=== PATIENT | female | born 1945 | race Caucasian/White ===

== ENCOUNTER 2016-06-01 05:25 | Inpatient (IN) | payer MEDICARE, BC ==
[2016-05-27 15:10] VITALS: BP 180/97
[~2016-06-01] VITALS: Ht 152.4 cm; Wt 81.1 kg
[~2016-06-01 05:25] MED LIST: ALBU8.5H3 INH; CYCL5TAB PO; DEXA4TAB PO; DOCU100C8 PO; DOXA4TAB3 PO; ERGO500017 PO; HYDR-3144 PO; LOSA1TAB18 PO; LOVA20TA2 PO; MUPI22OI2 NAS; OXYC-223 PO; PARO40TA3 PO; POTA10TA5 PO
[2016-06-01] MEDS ORDERED: LACTATED RINGERS 1,000 ML IV SCH (06:19)
[2016-06-01] MEDS ORDERED: HYDR-879 PO (06:22)
[2016-06-01] MEDS ORDERED: LIDOCAINE 0.5%-EPI 1:200K, 50ML ONE (07:01)
[2016-06-01] MEDS ORDERED: VANCOMYCIN 1,000 MG ONE (07:02)
[2016-06-01] MEDS ORDERED: BUPIVACAINE/PF-EPI 0.25% 1:200K ONE (07:02)
[2016-06-01] MEDS ORDERED: THROMBIN 5,000 UNIT VIAL TP ONE (07:02)
[2016-06-01] MEDS ORDERED: PROPOFOL 10 MG/ML, 20ML ONE (07:49)
[2016-06-01] MEDS ORDERED: DEXAMETHASONE 4 MG/ML, 5ML ONE (07:49)
[2016-06-01] MEDS ORDERED: PROPOFOL 10 MG/ML, 50ML ONE (07:49)
[2016-06-01] MEDS ORDERED: METOPROLOL 1 MG/ML, 5ML ONE (07:49)
[2016-06-01] MEDS ORDERED: CEFAZOLIN 1,000 MG ONE (07:49)
[2016-06-01] MEDS ORDERED: SUCCINYLCHOLINE 20 MG/ML, 10ML ONE (07:49)
[2016-06-01] MEDS ORDERED: ONDANSETRON 2MG/ML, 2ML ONE (07:49)
[2016-06-01] MEDS ORDERED: ROCURONIUM 10 MG/ML ONE (07:49)
[2016-06-01] MEDS ORDERED: ALBUTEROL SULFATE 200 PUFFS/8.5 GR INH ONE (07:49)
[2016-06-01] MEDS ORDERED: HYDROmorphone 2 MG/ML, 1ML ONE ×2 (09:45→11:27)
[2016-06-01] MEDS ORDERED: ALBUTEROL SULFATE 2.5 MG/3 ML NPPB PRN (10:00)
[2016-06-01] MEDS ORDERED: MIDAZOLAM 1 MG/ML, 2ML IV PRN (10:00)
[2016-06-01] MEDS ORDERED: VANCOMYCIN 1,000 MG IVPush ONE (10:00)
[2016-06-01] MEDS ORDERED: OXYcodone 5 MG/5 ML ORAL.SOL UDC PO PRN (10:00)
[2016-06-01] MEDS ORDERED: FENTANYL PF 100 MCG/2ML IV PRN (10:00)
[2016-06-01] MEDS ORDERED: hydrALAzine 20 MG/ML, 1ML IV PRN (10:00)
[2016-06-01] MEDS ORDERED: ONDANSETRON 2MG/ML, 2ML IVPush PRN (10:00)
[2016-06-01] MEDS ORDERED: ACETAMINOPHEN 325 MG TABLET PO PRN (10:00)
[2016-06-01] MEDS ORDERED: MEPERIDINE/PF 25MG/0.5ML IVPush PRN (10:00)
[2016-06-01] MEDS ORDERED: METOPROLOL 1 MG/ML, 5ML IV PRN (10:00)
[2016-06-01] MEDS ORDERED: EPHEDRINE 50 MG/ML, 1ML IVPush PRN (10:00)
[2016-06-01] MEDS ORDERED: PROMETHAZINE 25 MG/ML, 1ML IV PRN (10:00)
[2016-06-01] MEDS ORDERED: LABETALOL 5MG/ML, 20ML IV PRN (10:00)
[2016-06-01] MEDS ORDERED: OXYcodone 5 MG/5 ML ORAL.SOL UDC ONE (11:27)
[2016-06-01] MEDS: HYDROmorphone 1 MG/ML, 1ML IV PRN ×2 (11:30→11:45)
[2016-06-01 12:30] VITALS: BP 137/79
[2016-06-01] MEDS ORDERED: HYDROmorphone 2 MG/ML, 1ML IM PRN (13:30)
[2016-06-01] MEDS ORDERED: DIPHENHYDRAMINE 50 MG/ML, 1ML IM PRN (13:30)
[2016-06-01] MEDS ORDERED: DIPHENHYDRAMINE 50 MG CAPSULE PO PRN (13:30)
[2016-06-01] MEDS ORDERED: PROMETHAZINE 25 MG/ML, 1ML IM PRN (13:30)
[2016-06-01] MEDS ORDERED: ALBUTEROL SULFATE 2.5 MG/3 ML HHN PRN (13:30)
[2016-06-01] MEDS ORDERED: DIPHENHYDRAMINE 50 MG/ML, 1ML IVPush PRN (13:30)
[2016-06-01] MEDS ORDERED: ONDANSETRON 2MG/ML, 2ML IV PRN (13:30)
[2016-06-01] MEDS ORDERED: CYCLOBENZAPRINE 10 MG TABLET PO PRN (13:30)
[2016-06-01] MEDS ORDERED: MAGNESIUM HYDROXIDE 8%, 30ML UDC PO PRN (13:30)
[2016-06-01] MEDS: METHOCARBAMOL 1,000 MG in DEXTROSE 5% 100 ML IV SCH ×2 (15:25→23:23)
[2016-06-01] MEDS: LOSARTAN 50MG TABLET PO SCH (15:31)
[2016-06-01] MEDS: HYDROCHLOROTHIAZIDE 12.5 MG CAPSULE PO SCH (15:33)
[2016-06-01] MEDS: POTASSIUM CHLORIDE 10 MEQ TABLET.ER PO SCH (15:34)
[2016-06-01] MEDS: D5%-0.9% NACL+KCL 20MEQ 1,000 ML IV SCH (15:35)
[2016-06-01] MEDS: CEFAZOLIN PMX 1GM/50ML 50 ML IVPB SCH (15:37)
[2016-06-01 17:15] VITALS: BP 152/78
[2016-06-01] MEDS: OXYcodone/APAP 5/325MG TABLET PO PRN (17:53)
[2016-06-01 20:47] VITALS: BP 163/90
[2016-06-01] MEDS: DOXAZOSIN 2MG TABLET PO SCH (20:57)
[2016-06-01] MEDS: LOVASTATIN 40 MG TABLET PO SCH (20:57)
[2016-06-01] MEDS: HYDROmorphone 2MG TABLET PO PRN (20:57)
[2016-06-02 00:12] VITALS: BP 143/79
[2016-06-02] MEDS: CEFAZOLIN PMX 1GM/50ML 50 ML IVPB SCH ×3 (00:14→15:57)
[2016-06-02] MEDS: OXYcodone/APAP 5/325MG TABLET PO PRN ×2 (02:18→06:52)
[2016-06-02 03:38] VITALS: BP 166/84
[2016-06-02] MEDS: D5%-0.9% NACL+KCL 20MEQ 1,000 ML IV SCH (04:36)
[2016-06-02 06:49] VITALS: BP 159/72
[2016-06-02] MEDS: METHOCARBAMOL 1,000 MG in DEXTROSE 5% 100 ML IV SCH (07:54)
[2016-06-02] MEDS: LOSARTAN 50MG TABLET PO SCH (07:58)
[2016-06-02] MEDS: SENNA/DOCUSATE TABLET PO SCH (07:59)
[2016-06-02] MEDS: HYDROCHLOROTHIAZIDE 12.5 MG CAPSULE PO SCH (07:59)
[2016-06-02] MEDS: POTASSIUM CHLORIDE 10 MEQ TABLET.ER PO SCH (07:59)
[2016-06-02] MEDS: PAROXETINE 20 MG TABLET PO SCH (08:00)
[2016-06-02] MEDS: HYDROmorphone 2MG TABLET PO PRN (08:00)
[2016-06-02] MEDS: OXYcodone/APAP 10/325MG TABLET PO PRN ×4 (11:11→23:20)
[2016-06-02 12:57] VITALS: BP 139/73
[2016-06-02] MEDS ORDERED: CYCLOBENZAPRINE 10 MG TABLET PO PRN (13:30)
[2016-06-02] MEDS: METHOCARBAMOL 750 MG TABLET PO PRN (16:04)
[2016-06-02 20:31] VITALS: BP 136/76
[2016-06-02] MEDS: DOXAZOSIN 2MG TABLET PO SCH (21:25)
[2016-06-02] MEDS: LOVASTATIN 40 MG TABLET PO SCH (21:26)
[2016-06-03 03:00] VITALS: BP 178/86
[2016-06-03] MEDS: OXYcodone/APAP 10/325MG TABLET PO PRN ×4 (03:43→17:20)
[2016-06-03 04:54] VITALS: BP 167/77
[2016-06-03] MEDS: METHOCARBAMOL 750 MG TABLET PO PRN ×2 (08:30→17:20)
[2016-06-03] MEDS: POTASSIUM CHLORIDE 10 MEQ TABLET.ER PO SCH (08:33)
[2016-06-03] MEDS: SENNA/DOCUSATE TABLET PO SCH (08:34)
[2016-06-03] MEDS: PAROXETINE 20 MG TABLET PO SCH (08:34)
[2016-06-03] MEDS: LOSARTAN 50MG TABLET PO SCH (08:35)
[2016-06-03] MEDS: HYDROCHLOROTHIAZIDE 12.5 MG CAPSULE PO SCH (08:35)
[2016-06-03 08:38] VITALS: BP 142/67
[2016-06-03] MEDS ORDERED: MAGNESIUM HYDROXIDE 8%, 30ML UDC PO SCH (09:00)
[2016-06-03 13:47] VITALS: BP 150/90
[2016-06-03] MEDS ORDERED: OXYC-229 PO (17:30)
[2016-06-03] MEDS ORDERED: CEPH-368 PO (17:31)
[2016-06-03] MEDS ORDERED: METH750T87 PO (17:32)
== END 2016-06-03 18:14 | disposition home or self-care (01) | DRG 472 ==
LOC: ORIP 05:25 → 4NOR 12:26
PROVIDERS: ADMIT Orthopaedic Surgery Orthopaedic Surgery of the Spine; ATTEND Orthopaedic Surgery Orthopaedic Surgery of the Spine
PROC: 0RB30ZZ Excision of Cervical Vertebral Disc, Open Approach (ICD-10-PCS; 2016-06-01)
PROC: 0RG1071 Fusion of Cervical Vertebral Joint with Autologous Tissue Substitute, Posterior Approach, Posterior Column, Open Approach (ICD-10-PCS; principal; 2016-06-01 07:30)
DX: M48.02 Spinal stenosis, cervical region (principal); M50.01 Cervical disc disorder with myelopathy, high cervical region; R33.9 Retention of urine, unspecified; R20.2 Paresthesia of skin; Z98.1 Arthrodesis status; I10 Essential (primary) hypertension; J45.909 Unspecified asthma, uncomplicated; E78.5 Hyperlipidemia, unspecified; M17.11 Unilateral primary osteoarthritis, right knee
CPT/HCPCS: 72040; 95938; 95941; C1713; J0690; J1100; J1170; J2405; J2704; J3370; J0330; J2800; J3480; J7120